=== PATIENT | female | born 1960 | race Caucasian/White ===

== ENCOUNTER 2017-01-23 19:00 | Emergency (ER) | payer BC, OTHER ==
[~2017-01-23] VITALS: Ht 170.2 cm; Wt 112.7 kg
[2017-01-23] MEDS ORDERED: ALBUTEROL/IPRATROPIUM 3MG-0.5MG/3ML (DUONEB) NEB VIAL INH ONE (19:35)
[2017-01-23 19:50] LABS: BASOPHILS % (AUTO) 1 % (0-2); EOSINOPHILS # (AUTO) 0.1 10^3uL; EOSINOPHILS % (AUTO) 2 % (0-4); LYMPHOCYTES # (AUTO) 0.7 X10^3; MEAN CORPUSCULAR HGB CONC 35.3 g/dL (31.0-37.0); MEAN CORPUSCULAR VOLUME 90 FL (80-100); MEAN PLATELET VOLUME 9.5 FL (6.0-9.5); MONOCYTES # (AUTO) 0.6 X10^3; MONOCYTES % (AUTO) 12 % (3-11); NEUTROPHILS # (AUTO) 3.5 X10^3; NEUTROPHILS % (AUTO) 70 % (51-67); PLATELET COUNT 212 10^3uL (150-450); WHITE BLOOD COUNT 5.05 10^3uL (4.0-11.0)
[2017-01-23 19:51] LABS: MEAN CORPUSCULAR HEMOGLOBIN 31.8 PG (26.0-34.0)
[2017-01-23 20:32] LABS: INFLUENZA VIRUS TYPE A ANTIBOD Positive (NEGATIVE)
[2017-01-23 20:33] LABS: INFLUENZA VIRUS TYPE B ANTIBOD Negative (NEGATIVE)
[2017-01-23] MEDS ORDERED: PROMETHAZINE 25 MG/ML (PHENERGAN) 1 ML VIAL IM ONE (20:45)
[2017-01-23] MEDS ORDERED: [UNRECOGNIZED DRUG - OTHER] PO ONE (20:45)
[2017-01-23] MEDS ORDERED: HYDROmorphone 1 MG/ML (DILAUDID) SYRINGE IM ONE (20:45)
--- NOTE | 2017-01-23 22:36 | NUR ---
PAIN BETTER RESTING IN BED
[2017-01-24 03:58] VITALS: BP 139/79
== END 2017-01-23 23:05 | disposition home or self-care (01) ==
LOC: ED 19:08
DX: J09.X2 Influenza due to identified novel influenza A virus with other respiratory manifestations (principal)
CPT/HCPCS: 36415; 71020; 85025; 86140; 87502; 94640; 96372; 99282; J1170; J2550; 99283